=== PATIENT | female | born 2000 | race Caucasian/White ===

== ENCOUNTER 2022-02-23 23:30 | Inpatient (IN) | payer OTHER ==
[2022-02-24] MEDS ORDERED: hydrALAZINE 20 MG/ML VIAL SLOW IVP PRN ×2 (00:20→05:12)
[2022-02-24] MEDS ORDERED: Famotidine/PF 20 mg/2ml Vial SLOW IVP PRN (00:20)
[2022-02-24] MEDS ORDERED: Promethazine HCl 25 MG/ML VIAL IM PRN ×3 (00:20→05:12)
[2022-02-24] MEDS ORDERED: Bicitra 30 ML UDCUP PO PRN (00:20)
[2022-02-24] MEDS ORDERED: Ondansetron PF 4 MG/2 ML Vial IVP PRN ×3 (00:20→05:12)
[2022-02-24] MEDS ORDERED: Acetaminophen 500 MG TAB PO PRN (00:20)
[2022-02-24] MEDS ORDERED: Betamet Acet/Betamet Na Ph 30 MG/5 ML VIAL ONE (00:22)
[2022-02-24] MEDS ORDERED: CEFAZOLIN 2 GM VIAL ONE (00:28)
[2022-02-24] MEDS ORDERED: Betamet Acet/Betamet Na Ph 30 MG/5 ML VIAL IM SCH (00:30)
[2022-02-24] MEDS ORDERED: CEFAZOLIN 2 GM in Sodium Chloride 0.9% 100 ML IVPB SCH (00:30)
[2022-02-24] MEDS ORDERED: Lactated Ringer's 1,000 ML IV SCH (00:30)
[2022-02-24] MEDS ORDERED: Azithromycin 500 MG in Sodium Chloride 0.9% 250 ML 250 ML IVPB SCH (00:30)
[2022-02-24] MEDS ORDERED: Morphine PF 10 MG/10 ML VIAL ONE (00:31)
[2022-02-24] MEDS ORDERED: Fentanyl 100 MCG/2 ML VIAL ONE (00:31)
[2022-02-24] MEDS ORDERED: ePHEDrine Sulfate 50 MG/10 ML VIAL ONE (00:32)
[2022-02-24 00:38] LABS: Hemoglobin 12.3 g/dL (12.0-15.5); Mean Corpuscular HGB CONC 35.1 g/dL (32.0-36.0); Mean Corpuscular Hemoglobin 30.2 pg (27.0-33.0); Mean Platelet Volume 9.3 fl (7.4-10.4); Platelet Count 274 10x3/uL (150-450); RBC Distribution Width 11.8 % (11.5-14.5); Red Blood Cell (RBC) Count 4.07 10x6/uL (3.90-5.03); White Blood Cell (WBC) Count 8.7 10x3/uL (3.5-10.5)
[2022-02-24] MEDS ORDERED: Phenylephrine 40 MG/NS 250 ML 250 ML ONE (00:47)
[2022-02-24] MEDS ORDERED: Oxytocin 10 UNITS/ML VIAL ONE ×2 (00:58)
[2022-02-24 01:06] LABS: Syphilis Antibody Nonreactive (Nonreactive); Syphilis Antibody Index 0.04 S/CO (<1.00 Non-Reactive)
[2022-02-24 01:07] LABS: HBSAg Index 0.15 S/CO (0-0.99); Hep B Surf Ag Non-Reactive S/CO (NonReactive)
[2022-02-24] MEDS ORDERED: Meperidine HCl/PF 25 MG/ML VIAL SLOW IVP PRN (01:44)
[2022-02-24] MEDS ORDERED: Fentanyl 100 MCG/2 ML VIAL SLOW IVP PRN (01:44)
[2022-02-24] MEDS ORDERED: diphenhydrAMINE 50 MG/ML VIAL IVP PRN (01:44)
[2022-02-24] MEDS ORDERED: Moisturizing Cream (Eucerin) 113 GM JAR TOP PRN (01:44)
[2022-02-24] MEDS ORDERED: Naloxone HCl 0.4 mg/ml Vial IVP PRN ×2 (01:44)
[2022-02-24] MEDS ORDERED: Ondansetron HCl/PF 4 MG/2 ML Vial IVP PRN (01:44)
[2022-02-24] MEDS ORDERED: Naloxone HCl 0.4 mg/ml Vial IV PRN (01:44)
[2022-02-24] MEDS ORDERED: Promethazine HCl 25 MG SUPP PR PRN (01:44)
[2022-02-24] MEDS ORDERED: Ketorolac Tromethamine 30 MG/ML VIAL IVP SCH (01:45)
[2022-02-24] MEDS ORDERED: Communication Order-Pharmacy FS SCH (01:45)
[2022-02-24] MEDS ORDERED: NS w/ Oxytocin 30 units 500 ML ONE (01:47)
[2022-02-24 02:21] VITALS: BMI 27.3
[2022-02-24 02:40] LABS: SARS-CoV-2 NAA Rapid Test Not Detected (NotDetected)
[2022-02-24 02:55] LABS: Critical Notified By: CP.PH; pH (Cord, venous) 7.276 (7.250-7.350)
[2022-02-24 02:59] LABS: Critical Notified By: CP.PH
[2022-02-24] MEDS: Ketorolac Tromethamine 30 MG/ML VIAL IVP PRN ×3 (03:15→16:04)
[2022-02-24] MEDS ORDERED: Boostrix 0.5 ML (Tdap) VIAL (>/=7 yrs of age) IM ONE (05:12)
[2022-02-24] MEDS ORDERED: Measles/Mumps/Rubella 10 MCG/0.5 ML VIAL SC ONE (05:12)
[2022-02-24] MEDS ORDERED: diphenhydrAMINE 25 MG CAP PO PRN (05:12)
[2022-02-24] MEDS ORDERED: Varicella virus, LIVE 0.5 ML VIAL SC ONE (05:12)
[2022-02-24] MEDS ORDERED: NS w/ Oxytocin 30 units 500 ML IV SCH (05:12)
[2022-02-24] MEDS ORDERED: Methylergonovine 0.2 MG/ML VIAL IM PRN (05:12)
[2022-02-24] MEDS ORDERED: Simethicone Chewable 80 MG TAB PO PRN (05:12)
[2022-02-24] MEDS ORDERED: Misoprostol 200 MCG TAB PR PRN (05:12)
[2022-02-24] MEDS ORDERED: HYDROcodone/Acetaminophen 5/325 mg Tablet PO PRN (13:45)
[2022-02-24] MEDS ORDERED: Butorphanol Tartrate 1 MG/ML VIAL SLOW IVP PRN (13:45)
[2022-02-24] MEDS: Ferrous Sulfate 325 MG TAB PO SCH ×2 (18:59→19:00)
[2022-02-24] MEDS: Lactated Ringer's 1,000 ML IV SCH (19:00)
[2022-02-24] MEDS: HYDROcodone/Acetaminophen 5/325 mg Tablet PO PRN (21:37)
[2022-02-25 04:58] LABS: Hemoglobin 10.5 g/dL (12.0-15.5); Mean Corpuscular HGB CONC 34.9 g/dL (32.0-36.0); Mean Corpuscular Hemoglobin 30.4 pg (27.0-33.0); Mean Corpuscular Volume 87.2 fl (81.6-98.3); Mean Platelet Volume 9.6 fl (7.4-10.4); Platelet Count 233 10x3/uL (150-450); RBC Distribution Width 12.2 % (11.5-14.5); Red Blood Cell (RBC) Count 3.45 10x6/uL (3.90-5.03); White Blood Cell (WBC) Count 11.6 10x3/uL (3.5-10.5)
[2022-02-25 05:20] LABS: HIV (1/2) Antibody/Antigen Non-Reactive (NonReactive); HIV 1/2 INDEX 0.07 S/CO (<1.00)
[2022-02-25] MEDS: Ibuprofen 800 MG TAB PO SCH ×3 (05:44→21:19)
[2022-02-25] MEDS: Lactated Ringer's 1,000 ML IV SCH ×3 (05:48→21:21)
[2022-02-25] MEDS: Ferrous Sulfate 325 MG TAB PO SCH ×2 (07:24→21:20)
[2022-02-25] MEDS: HYDROcodone/Acetaminophen 5/325 mg Tablet PO PRN (12:17)
[2022-02-26] MEDS: Lactated Ringer's 1,000 ML IV SCH (05:33)
[2022-02-26] MEDS: Ibuprofen 800 MG TAB PO SCH ×2 (05:34→17:07)
[2022-02-26] MEDS: Ferrous Sulfate 325 MG TAB PO SCH (07:21)
[2022-02-26 08:10] VITALS: BP 135/85; TEMP 98.6
== END 2022-02-26 19:00 | disposition home or self-care (01) | DRG 788 ==
LOC: CSHLD/OP 23:30 → CSHLD 02-24 00:21 → CSHPP 02-24 04:40
PROVIDERS: ADMIT Obstetrics & Gynecology; ATTEND Obstetrics & Gynecology
PROC: 10D00Z1 Extraction of Products of Conception, Low, Open Approach (ICD-10-PCS; principal; 2022-02-24)
DX: O60.14X0 Preterm labor third trimester with preterm delivery third trimester, not applicable or unspecified (principal); Z3A.33 33 weeks gestation of pregnancy; Z37.0 Single live birth; O32.1XX0 Maternal care for breech presentation, not applicable or unspecified; Z20.822 Contact with and (suspected) exposure to COVID-19; Z90.89 Acquired absence of other organs
CPT/HCPCS: 36415; 51702; 82805; 85027; 86780; 86850; 86900; 86901; 87340; 87389; 99285; J0702; J1885; J2274; J2590; J3010; J7120; U0002